=== PATIENT | female | born 1995 | race African-American/Black ===

== ENCOUNTER 2022-09-05 12:12 | Emergency (ER) | payer MEDICAID, SELFPAY ==
[2022-09-05 12:13] VITALS: BP 129/85; PULSE 92; RESP 18; TEMP 36.1; O2SAT 97; BMI 36.5
--- NOTE | 2022-09-05 12:30 | ED.VIS.FEGU ---
HPI <BLAZE Ventura - Last Filed: 09/05/22 14:36> HPI - Female History of Present Illness Chief Complaint: Female C/O Narrative Narrative: 26-year-old female with PMH of ovarian cysts presents with right-sided pelvic pain that started last night. She has had pelvic pain intermittently over the last few years that occurs every couple months. She has no fever, chills, nausea, vomiting, urinary symptoms, and is having normal bowel movements. In the past she has been told she had ovarian cysts. She states she just moved to this area and does not have a PCP or PLATING DEPARTMENT HELPER yet. She has irregular menstrual cycles every 2-3 months and LMP was 08/08/22. She is not on control. Surgical history includes x1 for a stillborn . PFSH <BLAZE Ventura - Last Filed: 09/05/22 14:36> PFSH Medical History (Updated 09/05/22 @ 14:30 by BLAZE Ventura) Ovarian cyst Allergy/AdvReac Type Severity Reaction Status Date / Time No Known Allergies Allergy Verified 09/05/22 12:15 Surgical History (Updated 09/05/22 @ 12:43 by Jesi Correa) H/O: Social History Smoking Status: Never smoker ROS <BLAZE Ventura - Last Filed: 09/05/22 14:36> ROS ED ROS Narrative Constitutional: Negative for fever, chills, malaise. CVS: Negative for palpitations, chest pain. Respiratory: Negative for shortness of breath, cough. GI: Positive for abdominal pain. Negative for nausea, vomiting, diarrhea, constipation, melena, hematochezia. : Negative for dysuria, hematuria or frequency. EXAM <BLAZE Ventura - Last Filed: 09/05/22 14:36> Physical Exam Narrative Exam Narrative: CONST: Patient sitting in no acute distress. EYES: Normal inspection. NECK: Normal inspection. RESP: No respiratory distress, CTAB. CVS: Regular rate and rhythm, no murmur, no gallop. ABD: Soft with right pelvic tenderness, no guarding or rebound, nondistended. SKIN: Color normal, no rash, warm, dry, intact. EXTREMITIES: Normal appearance, no pedal edema. NEURO: Oriented x4. PSYCH: Normal affect. Const Vital Signs: 09/05/22 12:13 09/05/22 14:39 Temperature 97 F L Temperature Source Temporal Pulse Rate 92 81 Respiratory Rate 18 18 Blood Pressure 129/85 H Blood Pressure Mean 99 Pulse Ox 97 98 Oxygen Delivery Method Room Air <Dr. Ramos Quinones DO - Last Filed: 09/05/22 17:41> Physical Exam Const Vital Signs: 09/05/22 12:13 09/05/22 14:39 Temperature 97 F L Temperature Source Temporal Pulse Rate 92 81 Respiratory Rate 18 18 Blood Pressure 129/85 H Blood Pressure Mean 99 Pulse Ox 97 98 Oxygen Delivery Method Room Air MDM <BLAZE Ventura - Last Filed: 09/05/22 14:36> [facility] MDM Narrative Medical decision making narrative: Patient has right pelvic pain. She appears well and nontoxic. Vital signs stable. She has mild right pelvic tenderness with no peritoneal signs. Urine test is positive; serum hCG level is 565. CBC and BMP WNL. Transvaginal ultrasound showed early intrauterine gestational sac. Estimated to be about 4 to 5 weeks. Patient's pain was treated with Tylenol and she is comfortable continuing this at home. I spoke with on-call PLATING DEPARTMENT HELPER, Nneka Ramsey, who states that the patient can follow-up in office this week. She states she does not need a serial hCG testing ordered from the ED. Patient was discharged in stable condition. Differential: Ovarian cyst, ectopic , Attending note: Patient seen and evaluated with pallet assembler. I perform my own [id number] evaluation. I agree with the plan of work-up. Intermittent pelvic pain for the past week history of ovarian cysts. No surgical interventions. Her last cyst was 2.5 cm. She moved here from [place]. No established PCP or retarder operator. No urinary symptoms. No vaginal bleeding. Last menstrual period was August 08 less than a month ago. She had a stillborn 5 years ago. That was her last . Exam nontoxic mild tenderness right pelvic there is no guarding or rebound. ECG 3 urinary turn positive. Lab's were drawn fluid quant levels. Ultrasound ordered for further evaluation and rule out. Lab Data Attestation: I reviewed the patient's lab results. Labs: Laboratory Results - last 24 hr 09/05/22 09/05/22 12:38 13:05 WBC 11.5 H RBC 5.21 Hgb 12.9 Hct 41.3 MCV 79.3 L MCH 24.8 L MCHC 31.2 L RDW Std Deviation 45.6 H RDW Coeff of [place] 16.0 H Plt Count 341 MPV 9.7 Immature Gran % (Auto) 0.300 Neut % (Auto) 49.4 Lymph % (Auto) 45.7 H [place] % (Auto) 4.1 Eos % (Auto) 0.2 Baso % (Auto) 0.3 Absolute Neuts (auto) 5.7 Absolute Lymphs (auto) 5.27 H Nucleated RBC % 0 Atypical Lymphocytes 1+ Sodium 138 Potassium 3.6 Chloride 108 H Carbon Dioxide 25.0 Anion Gap 5 BUN 9 Creatinine 0.78 Estim Creat Clear Calc 91.21 Est GFR (MDRD) Af Amer 115 Est GFR (MDRD) Non-Af 95 BUN/Creatinine Ratio 11.5 Glucose 100 Calcium 8.6 HCG, Quant 565 H Urine Color Yellow Urine Clarity Clear Urine pH 6.0 Ur Specific [place] 1.020 Urine Protein 15 H Urine Glucose (UA) Normal Urine Ketones Negative Urine Occult Blood Negative Urine Nitrite Negative Urine Bilirubin Negative Urine Urobilinogen Normal Ur Leukocyte Esterase 25 H Urine RBC 0 SEEN Urine WBC 0 SEEN Ur Squamous Epith Cells 0-5 SEEN Urine Bacteria 0 SEEN Urine Mucus 0 SEEN Urine Test Positive H Radiography Diagnostic Testing: Clinical Impression(s) from Imaging Studies Obstetrics Ultrasound 09/05/22 12:53 IMPRESSION: Suspect early intrauterine gestational sac in the lower uterine segment. Correlation with serial beta-hCG measurements is recommended. Electronically Signed: Dominguez Rodriguez MD at 14:23 EDT , <Dr. Ramos Quinones, DO - Last Filed: 09/05/22 17:41> [facility] Narrative Medical decision making narrative: Patient has right pelvic pain. She appears well and nontoxic. Vital signs stable. She has mild right pelvic tenderness with no peritoneal signs. Urine test is positive; serum hCG level is 565. CBC and BMP WNL. Transvaginal ultrasound showed early intrauterine gestational sac. Estimated to be about 4 to 5 weeks. Patient's pain was treated with Tylenol and she is comfortable continuing this at home. I spoke with on-call PLATING DEPARTMENT HELPER, Nneka Ramsey, who states that the patient can follow-up in office this week. She states she does not need a serial hCG testing ordered from the ED. Patient was discharged in stable condition. Differential: Ovarian cyst, ectopic , Attending note: Patient seen and evaluated with pallet assembler. I perform my own [id number] evaluation. I agree with the plan of work-up. Intermittent pelvic pain for the past week history of ovarian cysts. No surgical interventions. Her last cyst was 2.5 cm. She moved here from [place]. No established PCP or retarder operator. No urinary symptoms. No vaginal bleeding. Last menstrual period was August 08 less than a month ago. She had a stillborn 5 years ago. That was her last . Exam nontoxic mild tenderness right pelvic there is no guarding or rebound. ECG 3 urinary turn positive. Lab's were drawn fluid quant levels. Ultrasound ordered for further evaluation and rule out. Ultrasound early gestational sac, hCG quant 565. Patient comfortable, discussed with on-call OB Dr. Ramsey, patient will be seen in the office tomorrow. Lab Data Labs: Laboratory Results - last 24 hr 09/05/22 09/05/22 12:38 13:05 WBC 11.5 H RBC 5.21 Hgb 12.9 Hct 41.3 MCV 79.3 L MCH 24.8 L MCHC 31.2 L RDW Std Deviation 45.6 H RDW Coeff of [place] 16.0 H Plt Count 341 MPV 9.7 Immature Gran % (Auto) 0.300 Neut % (Auto) 49.4 Lymph % (Auto) 45.7 H [place] % (Auto) 4.1 Eos % (Auto) 0.2 Baso % (Auto) 0.3 Absolute Neuts (auto) 5.7 Absolute Lymphs (auto) 5.27 H Nucleated RBC % 0 Atypical Lymphocytes 1+ Sodium 138 Potassium 3.6 Chloride 108 H Carbon Dioxide 25.0 Anion Gap 5 BUN 9 Creatinine 0.78 Estim Creat Clear Calc 91.21 Est GFR (MDRD) Af Amer 115 Est GFR (MDRD) Non-Af 95 BUN/Creatinine Ratio 11.5 Glucose 100 Calcium 8.6 HCG, Quant 565 H Urine Color Yellow Urine Clarity Clear Urine pH 6.0 Ur Specific [place] 1.020 Urine Protein 15 H Urine Glucose (UA) Normal Urine Ketones Negative Urine Occult Blood Negative Urine Nitrite Negative Urine Bilirubin Negative Urine Urobilinogen Normal Ur Leukocyte Esterase 25 H Urine RBC 0 SEEN Urine WBC 0 SEEN Ur Squamous Epith Cells 0-5 SEEN Urine Bacteria 0 SEEN Urine Mucus 0 SEEN Urine Test Positive H Radiography Diagnostic Testing: Clinical Impression(s) from Imaging Studies Obstetrics Ultrasound 09/05/22 12:53 IMPRESSION: Suspect early intrauterine gestational sac in the lower uterine segment. Correlation with serial beta-hCG measurements is recommended. Electronically Signed: Dominguez Rodriguez MD at 14:23 EDT , Discharge Plan Triage Chief Complaint: Female C/O ED Midlevel Provider: Eden Johnson ED Provider: Ramos Quinones Dx/Rx/DC Orders Clinical Impression: First trimester , Abdominal pain affecting Instructions: 1st Trimester Primary Care Provider: Care Physician,No Primary Referrals: Nneka Ramsey DO [Med Staff - Active Staff] - Care Physician,No Primary [Primary Care Provider] - Activity Restrictions/Additional Instructions: The ultrasound shows you have a very early likely around 4 to 5 weeks. Take Tylenol as needed for pain and call the PLATING DEPARTMENT HELPER office for follow-up appointment this week. Disposition Disposition: Home, Self Care Discharge Date/Time: 09/05/22 14:40
[2022-09-05 12:44] LABS: Bacteria 0 SEEN /hpf (None Seen); Mucous, Urine 0 SEEN /hpf (<or=2+); Red Blood Cells-Urine 0 SEEN /hpf (0-5); White Blood Cells 0 SEEN /hpf (0-5)
[2022-09-05 12:45] LABS: Color, Urine Yellow (Yellow); Glucose, Dipstick Normal (Normal); Ketone-Dipstick Negative (Negative); Leukocyte Esterase-Dipstick 25 /ul (Negative); Nitrite-Dipstick Negative (Negative); Occult Blood-Urine Negative /ul (Negative); Protein-Dipstick 15 mg/dl (Negative); Urine Bilirubin Dipstick Negative (Negative); Urine Clarity Clear (Clear); Urine Urobilinogen Normal (Normal)
[2022-09-05 12:51] LABS: Internal QC Validated? YES +Cl - CLEAR BKGD; Pregnancy, Urine Positive Negative; Squamous Epithelial Cells - UA 0-5 SEEN /hpf (5-10)
--- NOTE | 2022-09-05 12:53 | US_ITS ---
STUDY: FIRST TRIMESTER OBSTETRICAL ULTRASOUND REASON FOR EXAM: Female, 26 years old pelvic pain w/early preg LMP: 08/08/2022 TECHNIQUE: Transvaginal TECHNICAL QUALITY: Adequate. PRIOR ULTRASOUND: None. FINDINGS: There is visualization of a single gestational sac in a normal intrauterine position. The mean sac diameter (MSD) measures 2 mm, indicating an estimated gestational age (EGA) of 4 weeks, 6 days. The gestational sac shape is within normal limits. There is no demonstrated yolk sac.. The placenta is non-visualized. There is no demonstrated embryo ( pole).. The estimated gestation age (EGA) by LMP is 4 weeks, 0 days. The estimated date of delivery (CEASAR) by LMP is 05/15/2023. The estimated gestation age (EGA) by US is 4 weeks, 6 days. The estimated date of delivery (CEASAR) by US is 05/09/2023. The uterus measures 8.3 x 4.5 x 6.7 cm. There is no demonstrated uterine fibroid. The cervix is closed. The right ovary measures 3.4 x 4.0 x 2.9 cm. There is no right ovarian cyst. There is no visualized right adnexal mass or complex lesion. The left ovary measures 3.1 x 1.8 x 2.6]. There is no left ovarian cyst. There is no visualized left adnexal mass or complex lesion. There is no fluid in the cul de sac. US/Transvaginal w/Preg US IMPRESSION: Suspect early intrauterine gestational sac in the lower uterine segment. Correlation with serial beta-hCG measurements is recommended. Electronically Signed: Dominguez Rodriguez MD at 14:23 EDT ,
[2022-09-05 13:20] LABS: Absolute Lymphocyte Count 5.27 X10^3/uL (0.83-4.51); Absolute Neutrophil Count 5.7 X10^3/uL (2.0-7.7); Basophil# 0.03 X10^3/uL; Basophil% 0.3 % (0-1); Eosinophil# 0.02 X10^3/uL; Eosinophils% 0.2 % (0-5); Hematocrit 41.3 % (37-47); Hemoglobin 12.9 g/dL (12.0-15.0); Lymphocyte # 5.27 X10^3/ul (0.83-4.51); Lymphocyte % 45.7 % (19-41); Mean Corp Hgb Conc 31.2 g/dL (32-36); Mean Corpuscular Hgb 24.8 pg (27.0-32.0); Mean Corpuscular Volume 79.3 fL (81-99); Mean Platelet Vol. 9.7 fl (6.2-12.0); Monocyte# 0.47 X10^3/uL; Monocyte% 4.1 % (0-10); NRBC Flagged by Analyzer 0 % (0-5); Neutrophil % 49.4 % (47-70); POSITIVE DIFFERENTIAL YES; POSITIVE MORPHOLOGY YES; Platelet Count 341 K/mm3 (150-450); RBC Distribution Width SD 45.6 fl (35.1-43.9); Red Blood Count 5.21 M/mm3 (4.2-5.4); White Blood Count 11.5 K/mm3 (4.4-11.0)
[2022-09-05 13:23] LABS: Differential Indicated SCAN CRITERIA MET
[2022-09-05 13:30] LABS: Anion Gap 5 (5-15); BUN 9 mg/dL (7-18); BUN/Creat Ratio 11.5 RATIO (10-20); Calcium,Total 8.6 mg/dL (8.5-10.1); Chloride 108 mmol/L (98-107); Creatinine, Serum 0.78 mg/dL (0.55-1.02); EST Glomerular Filtration Rate 95 mL/min (>60); Est Glom Filt Rate - Afr Amer 115 mL/min (>60); Estimated Creatinine Clearance 91.21 ml/min; Glucose 100 mg/dL (74-106); Potassium 3.6 mmol/L (3.5-5.1); Sodium Level 138 mmol/L (136-145)
[2022-09-05 13:39] LABS: Atypical Lymphocyte 1+ %
[2022-09-05 13:49] LABS: hCG Titer Quant., Serum 565 mIU/mL (1-3)
[2022-09-05 14:39] VITALS: PULSE 81; RESP 18; O2SAT 98
== END 2022-09-05 14:40 | disposition home or self-care (01) ==
PROVIDERS: Physician Assistant; Emergency Provider Emergency Medicine; Visit Provider Emergency Medicine
DX: O26.891 Other specified pregnancy related conditions, first trimester (principal); R10.2 Pelvic and perineal pain; Z3A.01 Less than 8 weeks gestation of pregnancy
CPT/HCPCS: 76817; 80048; 81001; 81025; 84702; 85025; 99282; A4216

== ENCOUNTER 2022-09-15 15:50 | Emergency (ER) | payer MEDICAID, SELFPAY ==
[2022-09-15 15:52] VITALS: BP 130/70; PULSE 94; RESP 14; TEMP 36.2; O2SAT 97; BMI 36.3
--- NOTE | 2022-09-15 16:16 | US_ITS ---
STUDY: FIRST TRIMESTER OBSTETRICAL ULTRASOUND REASON FOR EXAM: Female, 26 years old. pelvic pain, positive TECHNIQUE: Transvaginal US was obtained to better visualized the ovaries. TECHNICAL QUALITY: Adequate. PRIOR ULTRASOUND: 09/05/22. FINDINGS: There is a gestational sac in the lower uterine segment. The mean sac diameter (MSD) measures 15 mm, indicating an estimated gestational age (EGA) of 6 weeks, 2 days. The gestational sac (GS) shape is irregular. There is no demonstrated yolk sac. The placenta is non-visualized. There is visualization of a live embryo. The crown-rump length (CRL) measures 5.8 mm, indicating an estimated gestational age (EGA) of 6 weeks, 4 days. There is demonstrated cardiac activity with a heart rate of 82 bpm. The estimated gestation age (EGA) by LMP is 6 weeks, 0 days. The estimated date of delivery (CEASAR) by LMP is 3.13.24. The estimated gestation age (EGA) by US is 6 weeks, 3 days. The estimated date of delivery (CEASAR) by US is 3.10.24. The uterus measures 10.7 cm. There is no demonstrated uterine fibroid. The cervix is closed. The right ovary measures 3.8 cm. Right corpus luteum cyst measures 24 mm. There is no visualized right adnexal mass or complex lesion. The left ovary measures 3.6 cm. There is no left ovarian cyst. There is no visualized left adnexal mass or complex lesion. There is no fluid in the cul de sac. US/Transvaginal w/Preg US IMPRESSION: There is a single live intrauterine with a heart rate of 82 bpm. The heart rate is low. Also, the gestational sac is irregular and tear drop shaped not round. The GS is also in the lower uterine segment. This is abnormal. Electronically Signed: Clarke Almeida MD at 17:41 EDT ,
--- NOTE | 2022-09-15 16:17 | EDS_ITS ---
HPI History of Present Illness Chief Complaint: Abd Pain Informant: patient Onset/Context/Timing Onset: Days (4 days) Context: Gradual Onset Timing: Waxes and wanes Narrative Narrative: Patient presents with abdominal cramping and back pain for the past 4 days. She was seen in the emergency room on September 05 and diagnosed with a early . Her quant was in the 500 range. Ultrasound revealed what they thought was a gestational sac in the lower uterine segment. Patient is to follow-up with Dr. Nneka Ramsey on the . Patient states that she is no longer having breast tenderness and has developed lower abdominal pain and back pain. She does have urinary frequency but no dysuria. She is nervous as she had a stillborn at 6 months with a prior . [facility] Medical History (Updated 09/15/22 @ 19:[address] Leida Lozano MD) Ovarian cyst Allergy/AdvReac Type Severity Reaction Status Date / Time No Known Allergies Allergy Verified 09/15/22 15:52 Surgical History H/O: Social History Smoking Status: Never smoker ROS ROS ED Constitutional Constitutional ED: Denies chills or fever(s) Eyes Eyes: Denies change in vision or discharge from eye(s) ENT ENT ED: Denies discharge from eye(s), rhinorrhea or sore throat Cardiovascular Cardiovascular: Denies chest pain or palpitations Respiratory/Chest Respiratory/Chest: Denies cough or dyspnea Gastrointestinal Gastrointestinal: Reports abdominal pain; Denies diarrhea, nausea or vomiting Genitourinary Genitourinary ED: Reports urinary frequency; Denies difficulty urinating or dysuria Musculoskeletal Musculoskeletal: Reports back pain; Denies extremity pain Integumentary Denies Abrasions or rash Neurologic Neurologic: Denies headache(s) or weakness Psychiatric Psychiatric: Denies anxiety or depression Allergic/Immunologic Allergic/Immunologic ED: Denies lip swelling or urticaria EXAM Physical Exam Const Vital Signs: 09/15/22 15:52 Temperature 97.1 F L Temperature Source Temporal Pulse Rate 94 Respiratory Rate 14 Blood Pressure 130/70 H Blood Pressure Mean 90 Pulse Ox 97 Oxygen Delivery Method Room Air Positive well nourished and well developed General Appearance ED: well developed HEENT Reports normocephalic and head/scalp atraumatic Eyes PERRL and EOMs intact bilaterally Neck supple Chest Wall inspection of chest normal and palpation of chest normal Resp normal respiratory effort and clear to auscultation bilaterally Cardio regular rate and regular rhythm GI normal to inspection, nondistended, normoactive bowel sounds Palpation: soft Back/Spine no CVA tenderness Extremity normal to inspection Neuro oriented x3 and no sensory deficits noted Sensorium / Orientation: alert Motor Exam: strength 5/5 throughout Psych mental status grossly normal Skin no rashes or lesions noted MDM MDM MDM Narrative Medical decision making narrative: Labwork obtained to evaluate for leukocytosis, anemia, and electrolyte derangement. Urinalysis obtained to evaluate for infection/hematuria. Pelvic ultrasound obtained to evaluate the . Lab Data Attestation: I reviewed the patient's lab results. Labs: Laboratory Results - last 24 hr 09/15/22 09/15/22 16:24 18:24 WBC 8.5 RBC 5.35 Hgb 13.1 Hct 42.7 MCV 79.8 L MCH 24.5 L MCHC 30.7 L RDW Std Deviation 46.6 H RDW Coeff of [place] 16.4 H Plt Count 334 MPV 10.0 Immature Gran % (Auto) 0.100 Neut % (Auto) 48.8 Lymph % (Auto) 45.4 H [place] % (Auto) 5.1 Eos % (Auto) 0.2 Baso % (Auto) 0.4 Absolute Neuts (auto) 4.1 Absolute Lymphs (auto) 3.84 Nucleated RBC % 0 Sodium 136 Potassium 3.4 L Chloride 104 Carbon Dioxide 26.0 Anion Gap 6 BUN 7 Creatinine 0.75 Estim Creat Clear Calc 94.85 Est GFR (MDRD) Af Amer 121 Est GFR (MDRD) Non-Af 100 BUN/Creatinine Ratio 9.4 L Glucose 99 Calcium 8.8 HCG, Quant 65641 H Urine Color Yellow Urine Clarity Sl. Cloudy Urine pH 6.5 Ur Specific [place] 1.010 Urine Protein 15 H Urine Glucose (UA) Normal Urine Ketones 5 H Urine Occult Blood Negative Urine Nitrite Negative Urine Bilirubin Negative Urine Urobilinogen Normal Ur Leukocyte Esterase 25 H Urine RBC 0 SEEN Urine WBC 0-5 SEEN Ur Squamous Epith Cells 10-25 SEEN Urine Bacteria 1+ Urine Mucus 0 SEEN Blood Type O POSITIVE Radiography Diagnostic Testing: Clinical Impression(s) from Imaging Studies Obstetrics Ultrasound 09/15/22 16:16 IMPRESSION: There is a single live intrauterine with a heart rate of 82 bpm. The heart rate is low. Also, the gestational sac is irregular and tear drop shaped not round. The GS is also in the lower uterine segment. This is abnormal. Electronically Signed: Clarke Almeida MD at 17:41 EDT , Treatment and Re-Evaluation :: Blood type is checked and is O+. CBC is unremarkable. Chemistry studies are normal. Quant is 15,000 371. Urinalysis reveals no evidence of acute infection with 0-5 white cells and 10-25 epithelials. Pelvic ultrasound reveals single live intrauterine with a heart rate of 82 bpm. The gestational sac is irregular anterior dropped shape. This is abnormal. I spoke with Dr. Nneka Ramsey who the patient is scheduled to see on October 11. She will ask the office to call the patient tomorrow morning to get her in to be seen sooner. Test results are discussed with the patient and I advised her that this is concerning for a possible miscarriage, however at this point we will need repeat checks to follow the progress of the . Return instructions were provided. Discharge Plan Triage Chief Complaint: Abd Pain ED Provider: Leida Lozano Dx/Rx/DC Orders Clinical Impression: Threatened miscarriage Instructions: ED Possible Miscarriage ... Primary Care Provider: Care Physician,No Primary Referrals: Nneka Ramsey DO [Med Staff - Active Staff] - As soon as possible Care Physician,No Primary [Primary Care Provider] - Activity Restrictions/Additional Instructions: Dr. Ramsey's office should call you tomorrow with an appointment for close follow-up. Disposition Disposition: Home, Self Care
[2022-09-15 16:50] LABS: Absolute Lymphocyte Count 3.84 X10^3/uL (0.83-4.51); Absolute Neutrophil Count 4.1 X10^3/uL (2.0-7.7); Basophil# 0.03 X10^3/uL; Basophil% 0.4 % (0-1); Eosinophil# 0.02 X10^3/uL; Eosinophils% 0.2 % (0-5); Hematocrit 42.7 % (37-47); Hemoglobin 13.1 g/dL (12.0-15.0); Lymphocyte # 3.84 X10^3/ul (0.83-4.51); Lymphocyte % 45.4 % (19-41); Mean Corp Hgb Conc 30.7 g/dL (32-36); Mean Corpuscular Hgb 24.5 pg (27.0-32.0); Mean Corpuscular Volume 79.8 fL (81-99); Monocyte# 0.43 X10^3/uL; Monocyte% 5.1 % (0-10); NRBC Flagged by Analyzer 0 % (0-5); Neutrophil # 4.12 X10^3/uL (2.7-7.7); Neutrophil % 48.8 % (47-70); Platelet Count 334 K/mm3 (150-450); RBC Distribution Width CV 16.4 % (11.6-14.6); RBC Distribution Width SD 46.6 fl (35.1-43.9); Red Blood Count 5.35 M/mm3 (4.2-5.4); White Blood Count 8.5 K/mm3 (4.4-11.0)
[2022-09-15 17:05] LABS: Anion Gap 6 (5-15); BUN 7 mg/dL (7-18); BUN/Creat Ratio 9.4 RATIO (10-20); Calcium,Total 8.8 mg/dL (8.5-10.1); Chloride 104 mmol/L (98-107); Creatinine, Serum 0.75 mg/dL (0.55-1.02); EST Glomerular Filtration Rate 100 mL/min (>60); Est Glom Filt Rate - Afr Amer 121 mL/min (>60); Estimated Creatinine Clearance 94.85 ml/min; Glucose 99 mg/dL (74-106); Potassium 3.4 mmol/L (3.5-5.1); Sodium Level 136 mmol/L (136-145)
[2022-09-15 17:30] LABS: hCG Titer Quant., Serum 15371 mIU/mL (1-3)
[2022-09-15 18:29] LABS: Mucous, Urine 0 SEEN /hpf (<or=2+); Red Blood Cells-Urine 0 SEEN /hpf (0-5)
[2022-09-15 18:33] LABS: Color, Urine Yellow (Yellow); Glucose, Dipstick Normal (Normal); Ketone-Dipstick 5 mg/dl (Negative); Leukocyte Esterase-Dipstick 25 /ul (Negative); Nitrite-Dipstick Negative (Negative); Occult Blood-Urine Negative /ul (Negative); Protein-Dipstick 15 mg/dl (Negative); Urine Bilirubin Dipstick Negative (Negative); Urine Clarity Sl. Cloudy (Clear); Urine Urobilinogen Normal (Normal); Urine pH 6.5 (5.0 - 8.0)
[2022-09-15 18:40] LABS: Bacteria 1+ /hpf (None Seen); Squamous Epithelial Cells - UA 10-25 SEEN /hpf (5-10); White Blood Cells 0-5 SEEN /hpf (0-5)
== END 2022-09-15 19:55 | disposition home or self-care (01) ==
PROVIDERS: Emergency Provider Emergency Medicine; Visit Provider Emergency Medicine
DX: O20.0 Threatened abortion (principal); O99.891 Other specified diseases and conditions complicating pregnancy; R10.30 Lower abdominal pain, unspecified; M54.9 Dorsalgia, unspecified; Z3A.01 Less than 8 weeks gestation of pregnancy
CPT/HCPCS: 76817; 80048; 81001; 84702; 85025; 86900; 86901; 99282; A4216

== ENCOUNTER 2022-09-24 03:45 | Emergency (ER) | payer MEDICAID, SELFPAY ==
[2022-09-24 03:47] VITALS: BP 136/71; PULSE 107; RESP 16; TEMP 36.9; O2SAT 98; BMI 36.8
--- NOTE | 2022-09-24 04:09 | EDS_ITS ---
HPI HPI - Female History of Present Illness Chief Complaint: Vag Bld, Preg Informant: patient Associated Symptoms Last known menstrual period: 08/03/2022 P: 0 Ab: 1 Narrative Narrative: Patient is approximately 7-8 weeks by dates, has not had an ultrasound yet. She states she was at work tonight, she went to the bathroom and wiped and there was blood that she feared is from her vagina. It was a small amount. No urinary symptoms. No abdominal pain, no recent injuries or falls, no other systemic symptoms. She is concerned and anxious because she had a stillborn at 24 weeks with her only other and she wants this 1 to be okay. Unknown blood type. [facility] Medical History Ovarian cyst Home Medications NK 09/24/22 [History Last Taken Unknown] Allergy/AdvReac Type Severity Reaction Status Date / Time No Known Allergies Allergy Verified 09/24/22 03:46 Surgical History H/O: Social History Smoking Status: Never smoker ROS ROS ED Constitutional Constitutional ED: Denies chills or fever(s) Eyes Eyes: Denies change in vision or diplopia ENT ENT ED: Denies rhinorrhea or sore throat Cardiovascular Cardiovascular: Denies chest pain or palpitations Respiratory/Chest Respiratory/Chest: Denies cough or dyspnea Gastrointestinal Gastrointestinal: Denies abdominal pain, diarrhea, nausea or vomiting Genitourinary Genitourinary ED: Denies dysuria or hematuria Musculoskeletal Musculoskeletal: Denies back pain or neck pain Integumentary Denies abscess or rash Neurologic Neurologic: Denies headache(s), paresthesias or weakness Psychiatric Psychiatric: Denies anxiety or suicidal thoughts EXAM Physical Exam Const Vital Signs: 09/24/22 03:47 Temperature 98.4 F Temperature Source Temporal Pulse Rate 107 H Respiratory Rate 16 Blood Pressure 136/71 H Blood Pressure Mean 92 Pulse Ox 98 Positive well nourished and well developed General Appearance ED: well developed and NAD HEENT Reports moist mucous membranes normocephalic and atraumatic Eyes PERRL and EOMs intact bilaterally Neck full ROM and supple Resp normal respiratory effort and clear to auscultation bilaterally Cardio regular rate, regular rhythm and no murmurs GI non-tender and non-distended Auscultation: normoactive bowel sounds Palpation: soft Back/Spine no CVA tenderness General Back: other FROM Extremity normal to inspection General Extremety ED: Negative for edema, pulses abnormal or tenderness General Extremity: Negative for edema or pulses abnormal Neuro oriented x3, CN's II-XII intact bilaterally and no sensory deficits noted Sensorium / Orientation: awake and alert Motor Exam: strength 5/5 throughout Skin no rashes or lesions noted and no wounds MDM MDM MDM Narrative Medical decision making narrative: I was able to find record of her blood type, so we did not need to draw her blood. I did a bedside ultrasound, she does have a good double decidua sign, suggesting intrauterine . I do see a very small pole of is not able to definitively/accurately measure it, but I did detect a good heart rate of 131, with the patient's heart rate at 106. Reassured, this essentially rules out ectopic given low suspicion clinically of 1, and she can follow-up with her OB. History & Record Review Additional record(s) reviewed:: Prior outpatient record (Blood type O+) Discharge Plan Triage Chief Complaint: Vag Bld, Preg ED Provider: Juanjose Sherman Dx/Rx/DC Orders Clinical Impression: , threatened Instructions: ED Possible Miscarriage ... Prescriptions: No Action NK Primary Care Provider: Care Physician,No Primary Referrals: Nneka Ramsey DO [Med Staff - Active Staff] - As soon as possible Disposition Disposition: Home, Self Care
== END 2022-09-24 04:52 | disposition home or self-care (01) ==
LOC: ED 04:17
PROVIDERS: Emergency Provider Emergency Medicine; Visit Provider Emergency Medicine
DX: O20.0 Threatened abortion (principal); Z3A.01 Less than 8 weeks gestation of pregnancy
CPT/HCPCS: 99282

== ENCOUNTER → 2022-09-27 | Outpatient (CLI) | payer MEDICAID, SELFPAY ==
[2022-09-27 13:08] LABS: Absolute Lymphocyte Count 4.79 X10^3/uL (0.83-4.51); Absolute Neutrophil Count 5.4 X10^3/uL (2.0-7.7); Basophil# 0.04 X10^3/uL; Basophil% 0.4 % (0-1); Eosinophil# 0.08 X10^3/uL; Eosinophils% 0.7 % (0-5); Hematocrit 42.1 % (37-47); Hemoglobin 13.2 g/dL (12.0-15.0); Lymphocyte # 4.79 X10^3/ul (0.83-4.51); Lymphocyte % 43.8 % (19-41); Mean Corp Hgb Conc 31.4 g/dL (32-36); Mean Corpuscular Hgb 24.8 pg (27.0-32.0); Mean Corpuscular Volume 79.1 fL (81-99); Monocyte# 0.62 X10^3/uL; Monocyte% 5.7 % (0-10); NRBC Flagged by Analyzer 0 % (0-5); Neutrophil # 5.37 X10^3/uL (2.7-7.7); Neutrophil % 49.1 % (47-70); POSITIVE MORPHOLOGY YES; Platelet Count 385 K/mm3 (150-450); RBC Distribution Width CV 15.9 % (11.6-14.6); RBC Distribution Width SD 45.2 fl (35.1-43.9); Red Blood Count 5.32 M/mm3 (4.2-5.4); White Blood Count 10.9 K/mm3 (4.4-11.0)
[2022-09-27 13:11] LABS: Differential Indicated SCAN CRITERIA MET
[2022-09-27 13:37] LABS: Differential Comment SCANNED
[2022-09-27 14:42] LABS: HIV - WCH Non-Reactive (Nonreactive); Hepatitis B Surface Antigen Non-Reactive (Nonreactive); Hepatitis C Antibody Non-Reactive (Nonreactive); Rubella IgG Reactive (Nonreactive); Syphilis Antibodies Non-reactive
[2022-09-29 05:07] LABS: V-Zoster IgG (Immunity) 808 index (Immune >165)
[2022-09-30 20:39] LABS: HPV Reflexed? NOT INDICATED
== END | disposition home or self-care (01) ==
LOC: WOBLAB 12:11
PROVIDERS: Visit Provider Student in an Organized Health Care Education/Training Program
DX: Z34.81 Encounter for supervision of other normal pregnancy, first trimester (principal)
CPT/HCPCS: 36415; 85025; 86703; 86762; 86780; 86787; 86803; 87086; 87088; 87340; 88175; G0145